=== PATIENT | female | born 1945 | race Hispanic/Latino ===

== ENCOUNTER → 2018-02-23 | Outpatient (CLI) | payer OTHER ==
[~2018-02-23] MED LIST: ASPI-555 PO; ATOR10 PO; BUME1TAB12 PO; FLUOXETINE PO; HYDRALAZINE PO; INSU100C14 SQ; INSU300I SQ; LEVO75TA10 PO; METO25TA6 PO; SPIR25TA6 PO
== END | disposition home or self-care (01) ==
LOC: RAH 08:23
PROVIDERS: ATTEND Internal Medicine Gastroenterology
DX: R94.5 Abnormal results of liver function studies (principal); R18.8 Other ascites
CPT/HCPCS: 76700

== ENCOUNTER → 2018-04-01 | Outpatient (CLI) | payer OTHER ==
[~2018-04-01] MED LIST changes: +ALBUMIN (HUMAN) 25% 200 ML IV ONE
[2018-04-01 13:31] LABS: INR 1.22 (0.85-1.15); PROTHROMBIN TIME 12.8 SEC (9.6-11.6)
[2018-04-01 13:32] LABS: ALBUMIN 2.2 g/dL (3.5-5.0); CREATININE 2.2 mg/dL (0.5-1.5); POTASSIUM 3.8 mmol/L (3.5-5.1); TOTAL PROTEIN, SERUM 7.9 g/dL (6.0-8.3)
[2018-04-01 13:37] LABS: BASOPHILS % (AUTO) 0.5 % (0.0-5.0); EOSINOPHILS % (AUTO) 2.9 % (0.0-8.0); HEMATOCRIT 33.2 % (36-48); LYMPHOCYTES % (AUTO) 14.6 % (21.0-51.0); MEAN CORPUSCULAR HEMOGLOBIN 32.6 pg (27.0-33.0); MEAN CORPUSCULAR HGB CONC 33.6 g/dL (32.0-36.0); MONOCYTES % (AUTO) 8.7 % (3.0-13.0); NEUTROPHILS % (AUTO) 73.3 % (40.0-77.0); PLATELET COUNT (AUTO) 255 K/uL (130-400); RED BLOOD CELL COUNT(AUTO) 3.42 MIL/uL (4.00-5.50); RED CELL DISTRIBUTION WIDTH 13.9 % (11.0-15.5); WHITE BLOOD COUNT (AUTO) 13.1 K/uL (4.8-10.8)
[2018-04-01 16:45] LABS: ALBUMIN,BODY FLUID 0.7 g/dL
[2018-04-01 17:15] LABS: APPEARANCE BODY FLUID SLIGHTLY CLOUDY (CLEAR); COLOR,BODY FLUID YELLOW (LT YELLOW); SPECIMENTYPE,BODY FLUID ASCITES; TOTAL VOLUME,BODY FLUID 3000 mL
[2018-04-01 17:16] LABS: BODY FLUID RBC 36 /cu. mm.; BODY FLUID WBC 248 /cu. mm.
[2018-04-01 17:23] LABS: BF LYMPHOCYTE 15 %; BF MESOTHELIAL 73 %; BF OTHER CELLS 2
== END | disposition home or self-care (01) ==
LOC: RAH 12:45
PROVIDERS: ATTEND Internal Medicine Gastroenterology
DX: R18.8 Other ascites (principal)
CPT/HCPCS: 36415; 49083; 80053; 82042; 84157; 85025; 85610; 87071; 87205; 88108; 88305; 89051; P9046

== ENCOUNTER → 2018-07-19 | Outpatient (CLI) | payer OTHER ==
[~2018-07-19] MED LIST changes: -ALBUMIN (HUMAN) 25% 200 ML IV ONE; +ALBUMIN (HUMAN) 25% 200 ML IV SCH; +LIDOCAINE HCL MPF 1% 5ML VIAL ONE
[2018-07-19 08:20] LABS: EOSINOPHILS % (AUTO) 5.3 % (0.0-8.0); HEMATOCRIT 31.9 % (36-48); LYMPHOCYTES % (AUTO) 20.5 % (21.0-51.0); MEAN CORPUSCULAR HEMOGLOBIN 33.6 pg (27.0-33.0); MEAN CORPUSCULAR HGB CONC 34.2 g/dL (32.0-36.0); MEAN CORPUSCULAR VOLUME 98.2 fL (79-99); NEUTROPHILS % (AUTO) 63.2 % (40.0-77.0); PLATELET COUNT (AUTO) 255 K/uL (130-400); RED BLOOD CELL COUNT(AUTO) 3.25 MIL/uL (4.00-5.50); WHITE BLOOD COUNT (AUTO) 9.1 K/uL (4.8-10.8)
[2018-07-19 08:39] LABS: ALBUMIN 2.5 g/dL (3.5-5.0); BILIRUBIN,TOTAL 0.6 mg/dL (0.2-1.0); CREATININE 2.3 mg/dL (0.5-1.5); POTASSIUM 4.8 mmol/L (3.5-5.1); TOTAL PROTEIN, SERUM 8.4 g/dL (6.0-8.3)
[2018-07-19 08:50] LABS: INR 1.16 (0.85-1.15); PROTHROMBIN TIME 12.1 SEC (9.6-11.6)
[2018-07-19 12:53] LABS: APPEARANCE BODY FLUID CLEAR (CLEAR); COLOR,BODY FLUID YELLOW (LT YELLOW); SPECIMENTYPE,BODY FLUID ASCITES; TOTAL VOLUME,BODY FLUID 4000 mL
[2018-07-19 12:54] LABS: BODY FLUID RBC 28 /cu. mm.; BODY FLUID WBC 252 /cu. mm.
[2018-07-19 13:16] LABS: BF LYMPHOCYTE 45 %; BF MESOTHELIAL 31 %; BF MONOCYTE 12 %
== END | disposition home or self-care (01) ==
LOC: RAH 07:40
PROVIDERS: ATTEND Internal Medicine Gastroenterology
DX: K70.31 Alcoholic cirrhosis of liver with ascites (principal); E78.5 Hyperlipidemia, unspecified; I50.9 Heart failure, unspecified; F41.9 Anxiety disorder, unspecified; I21.3 ST elevation (STEMI) myocardial infarction of unspecified site; Z95.1 Presence of aortocoronary bypass graft; Z90.710 Acquired absence of both cervix and uterus; Z95.5 Presence of coronary angioplasty implant and graft; Z95.0 Presence of cardiac pacemaker; Z80.0 Family history of malignant neoplasm of digestive organs; Z79.899 Other long term (current) drug therapy; Z79.01 Long term (current) use of anticoagulants; G93.49 Other encephalopathy; E11.22 Type 2 diabetes mellitus with diabetic chronic kidney disease; N18.4 Chronic kidney disease, stage 4 (severe); Z79.4 Long term (current) use of insulin; Z79.84 Long term (current) use of oral hypoglycemic drugs; E03.9 Hypothyroidism, unspecified
CPT/HCPCS: 36415; 49083; 80053; 85025; 85610; 87071; 87205; 88108; 88305; 89051; P9046; J3490

== ENCOUNTER → 2018-08-06 | Outpatient (CLI) | payer OTHER ==
[~2018-08-06] VITALS: Ht 162.6 cm; Wt 60.1 kg
[~2018-08-06] MED LIST changes: +AEC81 PO; -ALBUMIN (HUMAN) 25% 200 ML IV SCH; +ATOR40TA71 PO; +FLUO10CA21 PO; +FURO40TA5 PO; +HYDR-3420 PO; +LEVO100T12 PO; -LIDOCAINE HCL MPF 1% 5ML VIAL ONE; +MULTIVITAMINE PO; +OMEP20CA10 PO; +SODIUM CHLORIDE 0.9% 1000ML 1,000 ML IV SCH; +SPIR50TA5 PO; +VANCOMYCIN 1GM+NS 250ML 250 ML IV SCH
[2018-08-06 15:05] LABS: BASOPHILS % (AUTO) 0.8 % (0.0-5.0); EOSINOPHILS % (AUTO) 3.7 % (0.0-8.0); HEMATOCRIT 32.4 % (36-48); LYMPHOCYTES % (AUTO) 19.4 % (21.0-51.0); MEAN CORPUSCULAR HEMOGLOBIN 33.3 pg (27.0-33.0); MEAN CORPUSCULAR HGB CONC 34.1 g/dL (32.0-36.0); MEAN CORPUSCULAR VOLUME 97.6 fL (79-99); MONOCYTES % (AUTO) 9.7 % (3.0-13.0); NEUTROPHILS % (AUTO) 66.4 % (40.0-77.0); PLATELET COUNT (AUTO) 222 K/uL (130-400); RED BLOOD CELL COUNT(AUTO) 3.32 MIL/uL (4.00-5.50); RED CELL DISTRIBUTION WIDTH 14.3 % (11.0-15.5); WHITE BLOOD COUNT (AUTO) 10.2 K/uL (4.8-10.8)
[2018-08-06 15:08] VITALS: BP 121/59
[2018-08-06 15:12] LABS: CREATININE 2.4 mg/dL (0.5-1.5); POTASSIUM 4.5 mmol/L (3.5-5.1)
[2018-08-06 15:16] LABS: INR 1.14 (0.85-1.15); PARTIAL THROMBOPLASTIN TIME 28.4 SEC (26.3-35.5); PROTHROMBIN TIME 11.9 SEC (9.6-11.6)
[2018-08-06 16:08] LABS: APPEARANCE,URINE Clear (CLEAR); BILIRUBIN,URINE Negative (NEGATIVE); COLOR,URINE Yellow (YELLOW); GLUCOSE, URINE (UA) Negative (NEGATIVE); KETONES,URINE Negative (NEGATIVE); LEUKOCYTE ESTERASE ,URINE Large (NEGATIVE); NITRATE,URINE Negative (NEGATIVE); OCCULT BLOOD,URINE Negative (NEGATIVE); PROTEIN,URINE Negative (NEGATIVE); UROBILINOGEN,URINE 0.2 mg/dL (0.2-1.0)
[2018-08-06 16:33] LABS: BACTERIA,URINE Few /HPF (None Seen); RBC,URINE 0-1 /HPF (0-1)
[2018-08-06 16:35] LABS: SQUAMOUS EPITHELIAL CELL,UR Rare /HPF (0-2)
== END ==
LOC: DAH 10:00 → EDSTATUS 08-10 11:00
PROVIDERS: ATTEND Surgery
DX: R94.31 Abnormal electrocardiogram [ECG] [EKG] (principal); I13.0 Hypertensive heart and chronic kidney disease with heart failure and stage 1 through stage 4 chronic kidney disease, or unspecified chronic kidney disease; E11.22 Type 2 diabetes mellitus with diabetic chronic kidney disease; I25.10 Atherosclerotic heart disease of native coronary artery without angina pectoris; N18.4 Chronic kidney disease, stage 4 (severe)
CPT/HCPCS: 36415; 80048; 81001; 85025; 85610; 85730; 93005

== ENCOUNTER 2018-08-17 07:57 | Observation (INO) | payer OTHER ==
[2018-08-13 15:09] LABS: BASOPHILS % (AUTO) 0.5 % (0.0-5.0); EOSINOPHILS % (AUTO) 2.8 % (0.0-8.0); HEMATOCRIT 32.1 % (36-48); LYMPHOCYTES % (AUTO) 18.9 % (21.0-51.0); MEAN CORPUSCULAR HEMOGLOBIN 32.6 pg (27.0-33.0); MEAN CORPUSCULAR HGB CONC 33.4 g/dL (32.0-36.0); MEAN CORPUSCULAR VOLUME 97.7 fL (79-99); MONOCYTES % (AUTO) 10.1 % (3.0-13.0); NEUTROPHILS % (AUTO) 67.7 % (40.0-77.0); PLATELET COUNT (AUTO) 194 K/uL (130-400); RED BLOOD CELL COUNT(AUTO) 3.28 MIL/uL (4.00-5.50); RED CELL DISTRIBUTION WIDTH 14.2 % (11.0-15.5); WHITE BLOOD COUNT (AUTO) 9.8 K/uL (4.8-10.8)
[2018-08-13 15:21] VITALS: BP 112/56
[2018-08-13 15:21] LABS: CREATININE 2.8 mg/dL (0.5-1.5); POTASSIUM 4.7 mmol/L (3.5-5.1)
[2018-08-13 15:21] LABS: APPEARANCE,URINE Clear (CLEAR); BILIRUBIN,URINE Negative (NEGATIVE); COLOR,URINE Yellow (YELLOW); GLUCOSE, URINE (UA) Negative (NEGATIVE); KETONES,URINE Negative (NEGATIVE); LEUKOCYTE ESTERASE ,URINE Large (NEGATIVE); NITRATE,URINE Positive (NEGATIVE); OCCULT BLOOD,URINE Negative (NEGATIVE); PH,URINE 6.5 (5.0-8.0); PROTEIN,URINE Negative (NEGATIVE)
[2018-08-13 15:24] LABS: INR 1.15 (0.85-1.15); PARTIAL THROMBOPLASTIN TIME 27.8 SEC (26.3-35.5)
[2018-08-13 15:44] LABS: BACTERIA,URINE Moderate /HPF (None Seen); RBC,URINE 0-1 /HPF (0-1)
[2018-08-17] VITALS (21 sets, daily range): BP systolic 109–159; BP diastolic 45–67
[~2018-08-17] VITALS: Ht 162.6 cm; Wt 59.7 kg
[~2018-08-17 07:57] MED LIST changes: -ASPI-555 PO; -ATOR10 PO; -ATOR40TA71 PO; -BUME1TAB12 PO; -FLUO10CA21 PO; -FLUOXETINE PO; -HYDRALAZINE PO; -INSU300I SQ; -LEVO75TA10 PO; -SODIUM CHLORIDE 0.9% 1000ML 1,000 ML IV SCH; -SPIR25TA6 PO; -VANCOMYCIN 1GM+NS 250ML 250 ML IV SCH
[2018-08-17] MEDS ORDERED: LEVOFLOXACIN 500 MG/D5W 100 ML 100 ML IV SCH (08:00)
[2018-08-17 08:42] LABS: CREATININE 2.6 mg/dL (0.5-1.5); POTASSIUM 5.3 mmol/L (3.5-5.1)
[2018-08-17] MEDS ORDERED: LACTATED RINGERS 1000ML 1,000 ML IV ONE (09:04)
[2018-08-17] MEDS ORDERED: ATOR40TA71 PO (10:07)
[2018-08-17] MEDS ORDERED: FLUO10CA21 PO (10:11)
[2018-08-17] MEDS ORDERED: DEXAMETHASONE SOD PHOSPHATE 10MG/ML 1ML VIAL ONE (10:29)
[2018-08-17] MEDS ORDERED: SUCCINYLCHOLINE 200MG/10ML SYR ONE (10:29)
[2018-08-17] MEDS ORDERED: LIDOCAINE PF 2% 5ML ABBOJECT ONE ×2 (10:29→10:33)
[2018-08-17] MEDS ORDERED: ONDANSETRON HCL 4 MG/2 ML VIAL ONE (10:29)
[2018-08-17] MEDS ORDERED: MIDAZOLAM HCL 1 MG/ML 2ML VIAL ONE (10:30)
[2018-08-17] MEDS ORDERED: GLYCOPYRROLATE 1 MG/5 ML SYRINGE ONE (10:30)
[2018-08-17] MEDS ORDERED: PROPOFOL 10 MG/ML 20ML VIAL IV ONE (10:31)
[2018-08-17] MEDS ORDERED: NEOSTIGMINE 5MG/5ML SYR IV ONE (10:31)
[2018-08-17] MEDS ORDERED: FENTANYL CITRATE PF 50 MCG/1 ML 2ML VIAL ONE (10:31)
[2018-08-17] MEDS ORDERED: ROCURONIUM 10MG/1ML SYR 10 MG/ML ML ONE (10:31)
[2018-08-17] MEDS ORDERED: KETAMINE 50MG/ML SYRINGE 50 MG/ML DISP.SYRIN IV ONE (10:42)
[2018-08-17] MEDS ORDERED: PHENYLEPHRINE HCL 10 MG/ML 1ML VIAL IV ONE (11:06)
[2018-08-17] MEDS ORDERED: EPHEDRINE SULFATE 50 MG/ML AMPULE ONE (11:10)
[2018-08-17] MEDS: SODIUM CHLORIDE 0.9% 1000ML 1,000 ML IV SCH ×2 (12:46→17:24)
[2018-08-17] MEDS ORDERED: ONDANSETRON HCL 4 MG/2 ML VIAL IVP PRN (13:00)
[2018-08-17] MEDS ORDERED: ACETAMINOPHEN 325 MG TAB PO PRN (13:00)
[2018-08-17] MEDS ORDERED: MORPHINE SULFATE 2 MG/ML 1ML SYG IV PRN (13:00)
[2018-08-17] MEDS ORDERED: ACETAMINOPHEN-CODEINE 300/30MG TAB PO PRN (13:00)
[2018-08-17] MEDS ORDERED: MEPERIDINE-PF 25 MG/ML SYG ONE ×2 (13:12→13:29)
[2018-08-17] MEDS ORDERED: PHARMACY COMMUNICATION MISC SCH (15:15)
[2018-08-17] MEDS ORDERED: GLUCAGON 1MG KIT 1 MG ML IM PRN (17:45)
[2018-08-17] MEDS ORDERED: DEXTROSE 50%-WATER 50 ML DISP.SYRIN IV PRN (17:45)
[2018-08-17] MEDS: METOPROLOL TARTRATE 25 MG TAB PO SCH (20:46)
[2018-08-17] MEDS: HYDRALAZINE HCL 10 MG TABLET PO SCH (20:46)
[2018-08-17] MEDS: HUMALOG PO SS1 SQ SCH (20:59)
[2018-08-17] MEDS ORDERED: FLUOXETINE HCL 10 MG CAPSULE PO SCH (21:00)
[2018-08-17] MEDS ORDERED: ATORVASTATIN CALCIUM 40 MG TABLET PO SCH (21:00)
[2018-08-18 03:06] VITALS: BP 150/67
[2018-08-18] MEDS: HUMALOG PO SS1 SQ SCH ×3 (05:47→17:12)
[2018-08-18] MEDS ORDERED: LEVOTHYROXINE 100 MCG TABLET PO SCH (06:30)
[2018-08-18 08:00] VITALS: BP 114/49
[2018-08-18] MEDS ORDERED: SPIRONOLACTONE 25 MG TAB PO SCH (09:00)
[2018-08-18] MEDS ORDERED: FUROSEMIDE 40 MG TABLET PO SCH (09:00)
[2018-08-18] MEDS ORDERED: PANTOPRAZOLE SODIUM 40 MG TABLET.DR PO SCH (09:00)
[2018-08-18] MEDS ORDERED: LEVOFLOXACIN 500 MG TABLET PO SCH (10:00)
[2018-08-18] MEDS ORDERED: DIPHENHYDRAMINE HCL 25 MG CAPSULE ONE (10:15)
[2018-08-18] MEDS ORDERED: DIPHENHYDRAMINE HCL 25 MG CAPSULE PO PRN (10:15)
[2018-08-18] MEDS: METOPROLOL TARTRATE 25 MG TAB PO SCH (10:18)
[2018-08-18] MEDS: HYDRALAZINE HCL 10 MG TABLET PO SCH (10:18)
[2018-08-18 11:00] VITALS: BP 112/49
[2018-08-18 16:00] VITALS: BP 136/56
== END 2018-08-18 18:47 | disposition home or self-care (01) ==
LOC: DAH 07:57 → 4BH 07:58
PROVIDERS: ADMIT Surgery; ATTEND Surgery
DX: C50.912 Malignant neoplasm of unspecified site of left female breast (principal)
CPT/HCPCS: 19307; 36415 ×2; 80048 ×2; 81001; 82948 ×6; 85025; 85610; 85730; 88309; 96365; 96372 ×2; A4452; A4600; G0378 ×35; J0330; J1100; J1956; J2001 ×2; J2175 ×2; J2370; J2405; J2704; J2710; J3010; J3490 ×3; J7030; J7120; Q0163; J2250

== ENCOUNTER → 2018-08-25 | Outpatient (CLI) | payer OTHER ==
[~2018-08-25] MED LIST changes: +ATOR40TA71 PO; +FLUO10CA21 PO
== END | disposition home or self-care (01) ==
LOC: RAH 08:00
PROVIDERS: ATTEND Internal Medicine Gastroenterology
DX: K74.60 Unspecified cirrhosis of liver (principal); I86.8 Varicose veins of other specified sites
CPT/HCPCS: 76700; 93975

== ENCOUNTER 2018-09-16 09:00 | Day surgery (SDC) | payer OTHER ==
[2018-09-13 16:46] LABS: BASOPHILS % (AUTO) 0.9 % (0.0-5.0); EOSINOPHILS % (AUTO) 6.4 % (0.0-8.0); HEMATOCRIT 32.2 % (36-48); LYMPHOCYTES % (AUTO) 20.6 % (21.0-51.0); MEAN CORPUSCULAR HGB CONC 32.6 g/dL (32.0-36.0); MEAN CORPUSCULAR VOLUME 98.2 fL (79-99); MONOCYTES % (AUTO) 11.3 % (3.0-13.0); NEUTROPHILS % (AUTO) 60.8 % (40.0-77.0); PLATELET COUNT (AUTO) 193 K/uL (130-400); RED BLOOD CELL COUNT(AUTO) 3.28 MIL/uL (4.00-5.50); RED CELL DISTRIBUTION WIDTH 13.5 % (11.0-15.5); WHITE BLOOD COUNT (AUTO) 7.9 K/uL (4.8-10.8)
[2018-09-13 16:49] VITALS: BP 109/58
[2018-09-13 16:55] LABS: CREATININE 2.5 mg/dL (0.5-1.5); POTASSIUM 4.2 mmol/L (3.5-5.1)
[2018-09-13 17:29] LABS: APPEARANCE,URINE Clear (CLEAR); BILIRUBIN,URINE Negative (NEGATIVE); COLOR,URINE Yellow (YELLOW); GLUCOSE, URINE (UA) Negative (NEGATIVE); KETONES,URINE Negative (NEGATIVE); LEUKOCYTE ESTERASE ,URINE Trace (NEGATIVE); NITRATE,URINE Negative (NEGATIVE); OCCULT BLOOD,URINE Negative (NEGATIVE); PH,URINE 5.5 (5.0-8.0); PROTEIN,URINE Negative (NEGATIVE)
[2018-09-13 17:42] LABS: RBC,URINE None Seen /HPF (0-1)
[2018-09-13 17:43] LABS: BACTERIA,URINE None Seen /HPF (None Seen); HYALINE CASTS, URINE 0-1 /LPF (0-1 /LPF); SQUAMOUS EPITHELIAL CELL,UR Few /HPF (0-2); WBC,URINE 0-1 /HPF (0-1)
[~2018-09-16] VITALS: Ht 162.6 cm; Wt 57.8 kg
[2018-09-16] VITALS (15 sets, daily range): BP systolic 102–114; BP diastolic 42–71
[~2018-09-16 09:00] MED LIST changes: +LACTATED RINGERS 1000ML 1,000 ML IV SCH
[2018-09-16] MEDS ORDERED: SODIUM CHLORIDE 0.9% 1000ML 1,000 ML IV ONE (09:43)
[2018-09-16] MEDS ORDERED: INSU300I SQ (10:42)
[2018-09-16] MEDS ORDERED: LIDOCAINE 1%-EPI 1:100,000 20 ML VIAL IJ ONE (11:35)
[2018-09-16] MEDS ORDERED: LIDOCAINE PF 2% 5ML ABBOJECT ONE (11:57)
[2018-09-16] MEDS ORDERED: MIDAZOLAM HCL 1 MG/ML 2ML VIAL ONE (11:57)
[2018-09-16] MEDS ORDERED: DEXAMETHASONE SOD PHOSPHATE 10MG/ML 1ML VIAL ONE (11:57)
[2018-09-16] MEDS ORDERED: ONDANSETRON HCL 4 MG/2 ML VIAL ONE (11:57)
[2018-09-16] MEDS ORDERED: PROPOFOL 10 MG/ML 20ML VIAL IV ONE ×2 (11:57→12:36)
[2018-09-16] MEDS ORDERED: FENTANYL CITRATE PF 50 MCG/1 ML 2ML VIAL ONE ×2 (11:58→12:25)
[2018-09-16] MEDS ORDERED: CEFAZOLIN SODIUM 1 GM VIAL ONE (12:25)
[2018-09-16] MEDS ORDERED: EPHEDRINE SULFATE 50 MG/ML AMPULE ONE (12:27)
== END 2018-09-16 15:00 | disposition home or self-care (01) ==
LOC: DAH 09:00
PROVIDERS: ATTEND Surgery
DX: Z45.2 Encounter for adjustment and management of vascular access device (principal); I21.3 ST elevation (STEMI) myocardial infarction of unspecified site; M81.0 Age-related osteoporosis without current pathological fracture; F64.9 Gender identity disorder, unspecified; I25.709 Atherosclerosis of coronary artery bypass graft(s), unspecified, with unspecified angina pectoris; I13.0 Hypertensive heart and chronic kidney disease with heart failure and stage 1 through stage 4 chronic kidney disease, or unspecified chronic kidney disease; E11.22 Type 2 diabetes mellitus with diabetic chronic kidney disease; N18.4 Chronic kidney disease, stage 4 (severe); Z79.4 Long term (current) use of insulin; E78.2 Mixed hyperlipidemia; E03.9 Hypothyroidism, unspecified; I25.5 Ischemic cardiomyopathy; F32.9 Major depressive disorder, single episode, unspecified; E66.9 Obesity, unspecified; E11.42 Type 2 diabetes mellitus with diabetic polyneuropathy; E11.3313 Type 2 diabetes mellitus with moderate nonproliferative diabetic retinopathy with macular edema, bilateral; K21.9 Gastro-esophageal reflux disease without esophagitis; Z79.899 Other long term (current) drug therapy; Z98.890 Other specified postprocedural states; Z95.1 Presence of aortocoronary bypass graft; Z90.710 Acquired absence of both cervix and uterus; Z98.51 Tubal ligation status; I50.22 Chronic systolic (congestive) heart failure; Z79.84 Long term (current) use of oral hypoglycemic drugs; Z88.2 Allergy status to sulfonamides; Z88.8 Allergy status to other drugs, medicaments and biological substances; Z82.49 Family history of ischemic heart disease and other diseases of the circulatory system; Z83.3 Family history of diabetes mellitus; Z85.3 Personal history of malignant neoplasm of breast; R27.0 Ataxia, unspecified
CPT/HCPCS: 36415; 36561; 71045; 80048; 81001; 82948; 85025; 93005; A4450; A4452; C1788; J0690; J1100; J1644; J2001; J2250; J2405; J2704 ×2; J3010 ×2; J3490; J7030 ×2

== ENCOUNTER → 2018-10-25 | Outpatient (CLI) | payer OTHER ==
[~2018-10-25] MED LIST changes: +ALBUMIN (HUMAN) 25% 200 ML IV SCH; +CALC-877 PO; +CEFT2PIG2 IV; +DIPH25 PO; +EXEM25TA PO; -HYDR-3420 PO; +INSU300I SQ; +LACT10PA4 PO; -LACTATED RINGERS 1000ML 1,000 ML IV SCH; +LEVO500T2 PO; +LIDOCAINE HCL 1% 20 ML VIAL ONE; +LOPE2TAB52 PO; +MULT-1203 PO; +ONDA4TAB4 PO; +PROP10TA72 PO; +RIFA550T PO
[2018-10-25 08:27] LABS: INR 1.22 (0.85-1.15); PARTIAL THROMBOPLASTIN TIME 29.2 SEC (26.3-35.5); PROTHROMBIN TIME 12.8 SEC (9.6-11.6)
--- NOTE | 2018-10-25 09:15 | NUR ---
U/S GD PARACENTESIS PROCEDURE PERFORMED BY DR VALLES. PUNCTURE SITE RIGHT SIDE OF ABDOMEN AND PATIENT TOLERATED PROCEDURE WELL. TOTAL REMOVED 6.7 LITERS OF CLEAR YELLOW FLUID_. ALBUMIN 25% 50 GRAMS IV GIVEN DURING PROCEDURE. SPECIMEN SENT TO LAB. END OF PROCEDURE AT 0955. CATHETER REMOVED AND DRESSING APPLIED. NO BLEEDING NOTED. DISCHARGE INSTRUCTIONS GIVEN TO PATIENT AND VERBALIZED UNDERSTANDING. DISCHARGED AMBULATORY @ 1030. STABLE, AAO X3 WITH NO C/O PAIN.
[2018-10-25 10:34] LABS: APPEARANCE BODY FLUID CLEAR (CLEAR); COLOR,BODY FLUID YELLOW (LT YELLOW); SPECIMENTYPE,BODY FLUID ASCITES; TOTAL VOLUME,BODY FLUID 6700 mL
[2018-10-25 10:35] LABS: BODY FLUID RBC 62 /cu. mm.; BODY FLUID WBC 126 /cu. mm.
[2018-10-25 11:12] LABS: BF LYMPHOCYTE 29 %; BF MESOTHELIAL 38 %; BF MONOCYTE 18 %
== END | disposition home or self-care (01) ==
LOC: RAH 07:39
PROVIDERS: ATTEND Internal Medicine
DX: R18.8 Other ascites (principal); Z95.1 Presence of aortocoronary bypass graft; Z98.84 Bariatric surgery status; Z98.890 Other specified postprocedural states; Z90.710 Acquired absence of both cervix and uterus; Z98.51 Tubal ligation status; Z79.01 Long term (current) use of anticoagulants; Z79.899 Other long term (current) drug therapy; I13.0 Hypertensive heart and chronic kidney disease with heart failure and stage 1 through stage 4 chronic kidney disease, or unspecified chronic kidney disease; E11.22 Type 2 diabetes mellitus with diabetic chronic kidney disease; N18.4 Chronic kidney disease, stage 4 (severe); I50.9 Heart failure, unspecified; I25.5 Ischemic cardiomyopathy; F33.40 Major depressive disorder, recurrent, in remission, unspecified; K21.9 Gastro-esophageal reflux disease without esophagitis; E11.36 Type 2 diabetes mellitus with diabetic cataract; I25.118 Atherosclerotic heart disease of native coronary artery with other forms of angina pectoris; E78.5 Hyperlipidemia, unspecified; E03.9 Hypothyroidism, unspecified; E78.2 Mixed hyperlipidemia; Z79.4 Long term (current) use of insulin; E11.42 Type 2 diabetes mellitus with diabetic polyneuropathy; E11.3313 Type 2 diabetes mellitus with moderate nonproliferative diabetic retinopathy with macular edema, bilateral; L50.9 Urticaria, unspecified; Z82.49 Family history of ischemic heart disease and other diseases of the circulatory system; Z83.3 Family history of diabetes mellitus; Z88.8 Allergy status to other drugs, medicaments and biological substances
CPT/HCPCS: 36415; 49083; 85610; 85730; 87071; 87205; 89051; 96365; A4215; P9046

== ENCOUNTER 2018-11-18 13:38 | Inpatient (IN) | payer OTHER ==
[2018-11-18] VITALS (11 sets, daily range): BP systolic 74–146; BP diastolic 35–68
[~2018-11-18] VITALS: Ht 162.6 cm; Wt 54.6 kg
[~2018-11-18 13:38] MED LIST changes: -ALBUMIN (HUMAN) 25% 200 ML IV SCH; -CEFT2PIG2 IV; -DIPH25 PO; -INSU100C14 SQ; -INSU300I SQ; -LACT10PA4 PO; -LIDOCAINE HCL 1% 20 ML VIAL ONE; -LOPE2TAB52 PO; -METO25TA6 PO; -MULTIVITAMINE PO; -SPIR50TA5 PO
[2018-11-18 14:04] LABS: BASOPHILS % (AUTO) 1.2 % (0.0-5.0); EOSINOPHILS % (AUTO) 10.7 % (0.0-8.0); HEMATOCRIT 24.3 % (36-48); LYMPHOCYTES % (AUTO) 21.2 % (21.0-51.0); MEAN CORPUSCULAR HEMOGLOBIN 32.3 pg (27.0-33.0); MEAN CORPUSCULAR HGB CONC 33.8 g/dL (32.0-36.0); MEAN CORPUSCULAR VOLUME 95.5 fL (79-99); MONOCYTES % (AUTO) 11.8 % (3.0-13.0); NEUTROPHILS % (AUTO) 55.1 % (40.0-77.0); NUCLEATED RED BLOOD CELLS 0.1 % (0.0-0.19); PLATELET COUNT (AUTO) 237 K/uL (130-400); RED BLOOD CELL COUNT(AUTO) 2.54 MIL/uL (4.00-5.50); RED CELL DISTRIBUTION WIDTH 15.9 % (11.0-15.5); WHITE BLOOD COUNT (AUTO) 9.2 K/uL (4.8-10.8)
[2018-11-18 14:21] LABS: CREATININE 3.1 mg/dL (0.5-1.5); POTASSIUM 3.4 mmol/L (3.5-5.1)
[2018-11-18 14:23] LABS: ALBUMIN 2.2 g/dL (3.5-5.0); BILIRUBIN,TOTAL 0.6 mg/dL (0.2-1.0); TOTAL PROTEIN, SERUM 7.3 g/dL (6.0-8.3)
[2018-11-18 15:21] LABS: INR 1.18 (0.85-1.15); PARTIAL THROMBOPLASTIN TIME 26.8 SEC (26.3-35.5); PROTHROMBIN TIME 12.4 SEC (9.6-11.6)
[2018-11-18] MEDS ORDERED: LIDOCAINE HCL 1% 20 ML VIAL INJ SCH (16:30)
[2018-11-18] MEDS ORDERED: LIDOCAINE HCL MPF 1% 5ML VIAL ONE (16:33)
[2018-11-18] MEDS: PHARMACY COMMUNICATION MISC SCH ×4 (17:00→20:00)
--- NOTE | 2018-11-18 17:00 | NUR ---
S/P RIGHT THORACENTESIS, 1.9 L. OUT NO DISTRESS, 1800 PM PENDING ALBUMIN VALENE FROM PHARMACY AWARE STATES WILL BRING, NO SOB, BP 111/68. NO BLEEDING NOTED. TO RIGHT SIDE INCISION.
--- NOTE | 2018-11-18 17:00 | NUR ---
CM DC PLAN SW THIS PATIENT S/P THORA- AAOX3 DENYING OCMPLAINTS OF PAIN, STATES WAS RECEIVING ABX FROM DR. BIANCHI VIA IM INJECTIONS; HAS ROLLATOR WALKER, ' IS PROVIDER' HOME IS SAFE TO RETURN TO AND FEELS 'GREAT' POST THORA. CM TO FOLLOW NEEDED
[2018-11-18] MEDS ORDERED: ALBUMIN (HUMAN) 25% 100 ML IV STA (17:04)
[2018-11-18] MEDS ORDERED: LIDOCAINE HCL-MPF 1% 2ML VIAL IVP PRN (17:15)
[2018-11-18] MEDS ORDERED: POTASSIUM CHLORIDE 10% ELIXIR 20 MEQ/15 ML UDCUP PO PRN (17:15)
[2018-11-18] MEDS ORDERED: POTASSIUM CHLORIDE 20MEQ/100ML 100 ML IV PRN (17:15)
[2018-11-18] MEDS: EXEMESTANE 25 MG PO SCH (18:00)
[2018-11-18 20:32] LABS: ALBUMIN,BODY FLUID 0.4 g/dL
[2018-11-18 21:03] LABS: APPEARANCE BODY FLUID SLIGHTLY CLOUDY (CLEAR); COLOR,BODY FLUID LT YELLOW (LT YELLOW); SPECIMENTYPE,BODY FLUID PLEURAL
[2018-11-18 21:04] LABS: TOTAL VOLUME,BODY FLUID 1840 mL
[2018-11-18 21:12] LABS: BODY FLUID WBC 81 /cu. mm.
[2018-11-18 21:13] LABS: BODY FLUID RBC 2 /cu. mm.
[2018-11-18 21:43] LABS: BF LYMPHOCYTE 40 %; BF MESOTHELIAL 25 %; BF MONOCYTE 7 %
[2018-11-19] VITALS: BP 110/51
[2018-11-19] MEDS: AZTREONAM 1 GM VIAL IVP SCH ×4 (00:02→17:21)
[2018-11-19] MEDS: LACTULOSE 20 GM/30 ML UDCUP PO SCH ×4 (00:05→21:37)
[2018-11-19] MEDS: FLUOXETINE HCL 10 MG CAPSULE PO SCH ×2 (00:05→21:38)
[2018-11-19] MEDS: PROPRANOLOL HCL 10 MG TAB PO SCH ×3 (00:05→21:38)
[2018-11-19 04:00] VITALS: BP 111/59
[2018-11-19 05:00] LABS: HEMATOCRIT 21.8 % (36-48); MEAN CORPUSCULAR HEMOGLOBIN 31.7 pg (27.0-33.0); MEAN CORPUSCULAR HGB CONC 33.3 g/dL (32.0-36.0); MEAN CORPUSCULAR VOLUME 95.1 fL (79-99); PLATELET COUNT (AUTO) 193 K/uL (130-400); RED BLOOD CELL COUNT(AUTO) 2.29 MIL/uL (4.00-5.50); RED CELL DISTRIBUTION WIDTH 15.6 % (11.0-15.5); WHITE BLOOD COUNT (AUTO) 7.8 K/uL (4.8-10.8)
[2018-11-19 05:08] LABS: INR 1.23 (0.85-1.15); PARTIAL THROMBOPLASTIN TIME 28.2 SEC (26.3-35.5); PROTHROMBIN TIME 12.9 SEC (9.6-11.6)
[2018-11-19 05:24] LABS: ALBUMIN 2.4 g/dL (3.5-5.0); BILIRUBIN,TOTAL 0.7 mg/dL (0.2-1.0); CREATININE 2.9 mg/dL (0.5-1.5); MAGNESIUM 1.5 mg/dL (1.80-2.40); POTASSIUM 3.7 mmol/L (3.5-5.1); THYROID STIMULATING HORMONE 1.71 uIU/mL (0.36-3.74); TOTAL PROTEIN, SERUM 6.9 g/dL (6.0-8.3)
[2018-11-19] MEDS: LEVOTHYROXINE 100 MCG TABLET PO SCH (06:10)
[2018-11-19 07:00] VITALS: BP 120/47
[2018-11-19] MEDS ORDERED: FUROSEMIDE 40 MG TABLET PO SCH (09:00)
[2018-11-19] MEDS: MULTIVITAMIN TABLET PO SCH (09:08)
[2018-11-19] MEDS: RIFAXIMIN 550 MG TABLET PO SCH (09:08)
[2018-11-19] MEDS: PANTOPRAZOLE SODIUM 40 MG TABLET.DR PO SCH (09:08)
[2018-11-19] MEDS: ASPIRIN 81 MG EC TAB PO SCH (09:08)
[2018-11-19 11:00] VITALS: BP 118/61
[2018-11-19] MEDS: CALCIUM 600 + VITAMIN D 400 TABLET PO SCH (12:59)
[2018-11-19 16:00] VITALS: BP_SYST 124; BP_DIAS 64; BP_DIAS 84
[2018-11-19] MEDS: EXEMESTANE 25 MG PO SCH (17:34)
[2018-11-19] MEDS ORDERED: MAGNESIUM 2GM PREMIX 50ML 50 ML IV SCH (19:15)
[2018-11-19] MEDS: FUROSEMIDE 10 MG/ML 4ML VIAL IV SCH (19:15)
[2018-11-19] MEDS ORDERED: ALBUMIN (HUMAN) 25% 50 ML IV ONE (20:00)
[2018-11-19] MEDS: PHARMACY COMMUNICATION MISC SCH ×4 (20:00→23:00)
[2018-11-19] MEDS: ALBUMIN (HUMAN) 25% 50 ML IV SCH (20:00)
[2018-11-19 20:27] VITALS: BP 125/56
[2018-11-20] MEDS: PHARMACY COMMUNICATION MISC SCH ×7 (01:00→22:00)
[2018-11-20 01:01] VITALS: BP_SYST 55
[2018-11-20] MEDS: AZTREONAM 1 GM VIAL IVP SCH ×3 (01:43→18:21)
[2018-11-20] MEDS: ALBUMIN (HUMAN) 25% 50 ML IV SCH ×3 (02:00→08:25)
[2018-11-20 04:32] VITALS: BP 115/52
[2018-11-20 05:27] LABS: MEAN CORPUSCULAR HEMOGLOBIN 32.4 pg (27.0-33.0); MEAN CORPUSCULAR HGB CONC 34.4 g/dL (32.0-36.0); MEAN CORPUSCULAR VOLUME 94.4 fL (79-99); PLATELET COUNT (AUTO) 161 K/uL (130-400); RED BLOOD CELL COUNT(AUTO) 2.16 MIL/uL (4.00-5.50); RED CELL DISTRIBUTION WIDTH 15.3 % (11.0-15.5); WHITE BLOOD COUNT (AUTO) 5.3 K/uL (4.8-10.8)
[2018-11-20 05:32] LABS: HEMATOCRIT 20.4 % (36-48)
[2018-11-20 05:41] LABS: INR 1.32 (0.85-1.15); PARTIAL THROMBOPLASTIN TIME 29.9 SEC (26.3-35.5); PROTHROMBIN TIME 13.8 SEC (9.6-11.6)
[2018-11-20 05:48] LABS: ALBUMIN 2.4 g/dL (3.5-5.0); BILIRUBIN,TOTAL 0.7 mg/dL (0.2-1.0); CREATININE 2.8 mg/dL (0.5-1.5); MAGNESIUM 1.5 mg/dL (1.80-2.40); PHOSPHORUS 4.2 mg/dL (2.5-4.9); POTASSIUM 3.3 mmol/L (3.5-5.1); TOTAL PROTEIN, SERUM 6.5 g/dL (6.0-8.3)
[2018-11-20] MEDS: LEVOTHYROXINE 100 MCG TABLET PO SCH (06:02)
[2018-11-20 07:00] VITALS: BP 125/52
[2018-11-20] MEDS: FUROSEMIDE 10 MG/ML 4ML VIAL IV SCH ×2 (08:27→20:39)
[2018-11-20] MEDS ORDERED: FUROSEMIDE 10 MG/ML 2ML VIAL IV SCH (11:00)
[2018-11-20 12:00] VITALS: BP 120/54
[2018-11-20] MEDS: LACTULOSE 20 GM/30 ML UDCUP PO SCH ×2 (12:10→20:31)
[2018-11-20] MEDS: ASPIRIN 81 MG EC TAB PO SCH (12:10)
[2018-11-20] MEDS: CALCIUM 600 + VITAMIN D 400 TABLET PO SCH (12:10)
[2018-11-20] MEDS: PANTOPRAZOLE SODIUM 40 MG TABLET.DR PO SCH (12:10)
[2018-11-20] MEDS: MULTIVITAMIN TABLET PO SCH (12:11)
[2018-11-20] MEDS: RIFAXIMIN 550 MG TABLET PO SCH (12:11)
[2018-11-20] MEDS: PROPRANOLOL HCL 10 MG TAB PO SCH ×2 (12:17→20:31)
[2018-11-20] MEDS ORDERED: SODIUM CHLORIDE 0.9% 500ML 500 ML IV ONE (15:49)
--- NOTE | 2018-11-20 15:52 | NUR ---
cm note met with patient Pt is independent lives at home with spouse. Uses a rollator walker, chair lift, and shower chair.. Feels safe to go back home, spouse assists with transportation and needs as necessary. DC plan to home Addendum: 11/20/18 at 1553 by YAN MURRY CM Amended: Links added.
--- NOTE | 2018-11-20 17:15 | NUR ---
Dr Valles on floor and patient consented for right chest tube insertion ( called per patient request and consent was obtained over the phone. Dr Valles inserted right chest tube size 14 connected to seal Pleur-evac drained 2100 cc yellow fluid sent to lab for testing orders for labs placed by doctor. chest tube securely sutured and tape to patient. patient tolerated procedure well. arrived prior to procedure and help hold and calm patient.
[2018-11-20 17:23] VITALS: BP 134/62
[2018-11-20] MEDS ORDERED: MORPHINE SULFATE 4 MG/1ML SYG IV PRN (17:45)
[2018-11-20] MEDS ORDERED: MORPHINE SULFATE 2 MG/ML 1ML SYG IVP PRN (17:45)
[2018-11-20] MEDS: EXEMESTANE 25 MG PO SCH (18:00)
[2018-11-20 19:20] VITALS: BP 139/50
[2018-11-20] MEDS: FLUOXETINE HCL 10 MG CAPSULE PO SCH (20:31)
[2018-11-20] MEDS: POTASSIUM CHLORIDE 20 MEQ ERTAB PO PRN (20:43)
[2018-11-20 21:17] LABS: SPECIMENTYPE,BODY FLUID PLEURAL
[2018-11-20 21:18] LABS: APPEARANCE BODY FLUID SLIGHTLY CLOUDY (CLEAR); COLOR,BODY FLUID LT YELLOW (LT YELLOW); TOTAL VOLUME,BODY FLUID 2100 mL
[2018-11-20 21:19] LABS: BODY FLUID WBC 426 /cu. mm.
[2018-11-20 21:20] LABS: BODY FLUID RBC 168 /cu. mm.
[2018-11-20 21:56] LABS: BF LYMPHOCYTE 24 %; BF MONOCYTE 9 %; BF OTHER CELLS 6
[2018-11-21 00:18] VITALS: BP 113/50
[2018-11-21] MEDS: PHARMACY COMMUNICATION MISC SCH ×4 (01:00→20:50)
[2018-11-21] MEDS: AZTREONAM 1 GM VIAL IVP SCH ×3 (02:10→17:31)
[2018-11-21 04:24] VITALS: BP 100/49
[2018-11-21 05:45] LABS: HEMATOCRIT 24.9 % (36-48); MEAN CORPUSCULAR HEMOGLOBIN 31.3 pg (27.0-33.0); MEAN CORPUSCULAR HGB CONC 34.2 g/dL (32.0-36.0); MEAN CORPUSCULAR VOLUME 91.4 fL (79-99); PLATELET COUNT (AUTO) 158 K/uL (130-400); RED BLOOD CELL COUNT(AUTO) 2.73 MIL/uL (4.00-5.50); RED CELL DISTRIBUTION WIDTH 16.6 % (11.0-15.5); WHITE BLOOD COUNT (AUTO) 7.9 K/uL (4.8-10.8)
[2018-11-21 05:53] LABS: CREATININE 2.8 mg/dL (0.5-1.5); MAGNESIUM 1.4 mg/dL (1.80-2.40); PHOSPHORUS 3.7 mg/dL (2.5-4.9); POTASSIUM 3.8 mmol/L (3.5-5.1)
[2018-11-21] MEDS: LEVOTHYROXINE 100 MCG TABLET PO SCH (06:00)
[2018-11-21] MEDS: FUROSEMIDE 10 MG/ML 4ML VIAL IV SCH ×2 (06:00→20:49)
[2018-11-21] MEDS: PANTOPRAZOLE SODIUM 40 MG TABLET.DR PO SCH (09:12)
[2018-11-21] MEDS: RIFAXIMIN 550 MG TABLET PO SCH (09:12)
[2018-11-21] MEDS: LACTULOSE 20 GM/30 ML UDCUP PO SCH ×3 (09:12→20:39)
[2018-11-21] MEDS: MULTIVITAMIN TABLET PO SCH (09:12)
[2018-11-21] MEDS: PROPRANOLOL HCL 10 MG TAB PO SCH ×2 (09:12→20:39)
[2018-11-21] MEDS: ASPIRIN 81 MG EC TAB PO SCH (09:13)
[2018-11-21 09:20] VITALS: BP 119/57
[2018-11-21 12:47] VITALS: BP 129/70
--- NOTE | 2018-11-21 12:50 | NUR ---
MD ROUNDS DR. RUBIO NOTIFIED OF RIGHT CHEST TUBE DISLODGING. 100ML OF CLEAR YELLOW FLUID NOTED IN H20 SEALED SUCTION CANISTER. 1 SUTURE REMOVED FROM CHEST TUBE. PRESSURE DRESSING APPLIED TO PUNCTURE SITE. NO NEW ORDERS FOR CHEST TUBE REINSERTION. CXR ORDERED.
[2018-11-21] MEDS: CALCIUM 600 + VITAMIN D 400 TABLET PO SCH (12:55)
[2018-11-21] MEDS ORDERED: MAGNESIUM 2GM PREMIX 50ML 50 ML IV SCH (13:15)
[2018-11-21 16:36] VITALS: BP 124/72
[2018-11-21] MEDS: OCTREOTIDE ACETATE 100 MCG/ML AMP SQ SCH ×2 (17:31→20:50)
[2018-11-21] MEDS: EXEMESTANE 25 MG PO SCH (17:31)
[2018-11-21 19:30] VITALS: BP 136/68
--- NOTE | 2018-11-21 20:00 | NUR ---
STATUS Pt resting in bed,respirations even and unlabored.Pt on 02 at 100% NRB mask,on cont 02 sat satting 100%.Pt denies chest pain or sob.
[2018-11-21] MEDS ORDERED: GLUCAGON 1MG KIT 1 MG ML IM PRN (20:30)
[2018-11-21] MEDS ORDERED: DEXTROSE 50%-WATER 50 ML DISP.SYRIN IV PRN (20:30)
[2018-11-21] MEDS: FLUOXETINE HCL 10 MG CAPSULE PO SCH (20:39)
[2018-11-21] MEDS: ALBUMIN (HUMAN) 25% 50 ML IV SCH (20:49)
[2018-11-21] MEDS: INSULIN HUMULIN R 100 UNIT/ML 3ML SQ SCH (21:00)
--- NOTE | 2018-11-21 22:25 | NUR ---
INSULIN Pts states he had given her insulin tonight.Instructed him not to give it to her starting tomorrow.He verbalized understanding.
[2018-11-22] VITALS (7 sets, daily range): BP systolic 115–139; BP diastolic 51–70
[2018-11-22] MEDS: AZTREONAM 1 GM VIAL IVP SCH ×3 (01:15→17:25)
[2018-11-22] MEDS: ALBUMIN (HUMAN) 25% 50 ML IV SCH ×3 (01:57→17:33)
[2018-11-22] MEDS: LACTULOSE 20 GM/30 ML UDCUP PO SCH ×4 (03:14→21:57)
[2018-11-22] MEDS: LEVOTHYROXINE 100 MCG TABLET PO SCH (05:42)
[2018-11-22] MEDS: FUROSEMIDE 10 MG/ML 4ML VIAL IV SCH ×2 (05:42→19:55)
[2018-11-22 05:54] LABS: HEMATOCRIT 27.1 % (36-48); MEAN CORPUSCULAR HEMOGLOBIN 30.9 pg (27.0-33.0); MEAN CORPUSCULAR HGB CONC 33.8 g/dL (32.0-36.0); MEAN CORPUSCULAR VOLUME 91.6 fL (79-99); PLATELET COUNT (AUTO) 177 K/uL (130-400); RED BLOOD CELL COUNT(AUTO) 2.96 MIL/uL (4.00-5.50); RED CELL DISTRIBUTION WIDTH 16.1 % (11.0-15.5); WHITE BLOOD COUNT (AUTO) 7.5 K/uL (4.8-10.8)
[2018-11-22] MEDS: INSULIN HUMULIN R 100 UNIT/ML 3ML SQ SCH ×4 (06:28→22:07)
[2018-11-22 07:38] LABS: CREATININE 3.2 mg/dL (0.5-1.5); MAGNESIUM 1.8 mg/dL (1.80-2.40); PHOSPHORUS 4.4 mg/dL (2.5-4.9)
[2018-11-22] MEDS ORDERED: LIDOCAINE HCL 1% 20 ML VIAL ONE (08:46)
--- NOTE | 2018-11-22 09:47 | NUR ---
PROCEDURE PATIENT SCHEDULED FOR U/S GD PARACENTESIS. IMAGES TAKEN AND REVIEWED BY DR Adarsh VOSS. NO FLUID SEEN FOR PARACENTESIS AND PROCEDURE CANCELLED. REPORT GIVEN TO ALANNA JACOB AND PATIENT TRANSPORTED TO [facility].
[2018-11-22] MEDS: OCTREOTIDE ACETATE 100 MCG/ML AMP SQ SCH ×3 (11:10→21:56)
[2018-11-22] MEDS: PANTOPRAZOLE SODIUM 40 MG TABLET.DR PO SCH (11:11)
[2018-11-22] MEDS: ASPIRIN 81 MG EC TAB PO SCH (11:11)
[2018-11-22] MEDS: MULTIVITAMIN TABLET PO SCH (11:11)
[2018-11-22] MEDS: PROPRANOLOL HCL 10 MG TAB PO SCH ×2 (11:12→21:56)
[2018-11-22] MEDS: RIFAXIMIN 550 MG TABLET PO SCH (11:12)
[2018-11-22] MEDS: CALCIUM 600 + VITAMIN D 400 TABLET PO SCH (12:07)
[2018-11-22] MEDS ORDERED: MAGNESIUM CITRATE 296 ML SOLUTION PO ONE (14:45)
[2018-11-22] MEDS: EXEMESTANE 25 MG PO SCH (17:27)
[2018-11-22] MEDS: FLUOXETINE HCL 10 MG CAPSULE PO SCH (21:56)
--- NOTE | 2018-11-22 23:04 | NUR ---
BM Pt states she's been having loose stools today, Continue on lactulose for Liver Cirrhosis.
[2018-11-23] MEDS: AZTREONAM 1 GM VIAL IVP SCH ×2 (01:23→10:18)
--- NOTE | 2018-11-23 01:37 | NUR ---
HYPOGLYCEMIA Pts skin cold and clammy,lethargic.Checked blood sugar 26.D 50 1 amp given iv.Random blood sugar ordered.
--- NOTE | 2018-11-23 01:48 | NUR ---
RECHECKED Blood sugar rechecked 198.Pt more awake,alert.Assisted to the bathroom,Morning labs drawn this time.
[2018-11-23 02:01] LABS: CREATININE 3.1 mg/dL (0.5-1.5); POTASSIUM 3.4 mmol/L (3.5-5.1)
[2018-11-23 03:20] VITALS: BP 121/63
--- NOTE | 2018-11-23 03:23 | NUR ---
FF UP Pt resting quietly in bed,skin warm to touch.Alert and oriented x 3. at bedside.
--- NOTE | 2018-11-23 04:19 | NUR ---
BLOOD SUGAR Bloos sugar rechecked 140.
[2018-11-23] MEDS: ALBUMIN (HUMAN) 25% 50 ML IV SCH (05:23)
[2018-11-23] MEDS: POTASSIUM CHLORIDE 20 MEQ ERTAB PO PRN (05:23)
[2018-11-23] MEDS: LACTULOSE 20 GM/30 ML UDCUP PO SCH ×2 (05:23→10:18)
[2018-11-23] MEDS: LEVOTHYROXINE 100 MCG TABLET PO SCH (06:07)
[2018-11-23] MEDS: FUROSEMIDE 10 MG/ML 4ML VIAL IV SCH (06:11)
[2018-11-23] MEDS: INSULIN HUMULIN R 100 UNIT/ML 3ML SQ SCH ×2 (06:15→13:50)
[2018-11-23 08:10] VITALS: BP 122/52
[2018-11-23] MEDS: PANTOPRAZOLE SODIUM 40 MG TABLET.DR PO SCH (10:18)
[2018-11-23] MEDS: ASPIRIN 81 MG EC TAB PO SCH (10:18)
[2018-11-23] MEDS: PROPRANOLOL HCL 10 MG TAB PO SCH (10:18)
[2018-11-23] MEDS: RIFAXIMIN 550 MG TABLET PO SCH (10:18)
[2018-11-23] MEDS: MULTIVITAMIN TABLET PO SCH (10:18)
[2018-11-23] MEDS: OCTREOTIDE ACETATE 100 MCG/ML AMP SQ SCH ×2 (10:31→13:41)
[2018-11-23 12:10] VITALS: BP 143/63
[2018-11-23] MEDS: CALCIUM 600 + VITAMIN D 400 TABLET PO SCH (13:41)
--- NOTE | 2018-11-23 15:17 | NUR ---
RDSCREEN - LOS X 5 Patient reports return of appetite. Intake at 75-100% with no report of GI distress. Patient LBM 11/22/18. Patient with altered renal lab values; RD rec to modify to renal non-dialysis diet. Patient with questions pertaining to dietary recommendations;RD provided information and reference materials for dietary recommendations. Patient monitored labs: K 3.4, Cl 99, BUN 33, Cr 3.1, Glu 207, Alb 2.4. RD to continue to monitor. Please notify RD as nutritional concerns arise. Thank you. Addendum: 11/23/18 at [address] Amended: Links added.
[2018-11-23] MEDS ORDERED: LACT PO (16:05)
[2018-11-23] MEDS ORDERED: FURO40TA5 PO (16:06)
[2018-11-23 16:21] VITALS: BP 148/74
--- NOTE | 2018-11-23 17:40 | NUR ---
DISCHARGE ORDERS RECEIVED FROM NESSA PRATER . PATIENT GIVEN DISCHARGE INSTRUCTIONS AND REVIEWED MEDICATION TO CONTINUE AND CHANGES TO BID ON LACTOSE AND LASIX AND FOLLOW-UP APPOINTMENT WITH DR ALARCON IN 2 WEEKS, PATIENT UNDERSTANDS TO CALL FOR APPOINTMENT. TELEMETRY UNIT REMOVED AND IV DISCONTINUE WITH CATHETER INTACT PRESSURE HELD TO SITE THE SITE DRESSED WITH PRESUURE DRESSING. PATIENT AND VERBALIZED UNDERSTANDING OF ALL INSTRUCTION . PATIENT TAKING BY WHEELCHAIR TO LOBBY AND LEFT WITH FAMILY FOR HOME.
== END 2018-11-23 18:05 | disposition home or self-care (01) | DRG 441 ==
LOC: EDH 13:38 → EDHIP 15:13 → OBSVTOIN 15:13 → 3CH 15:50
PROVIDERS: ADMIT Internal Medicine Critical Care Medicine; ATTEND Internal Medicine Critical Care Medicine
PROC: 30233N1 Transfusion of Nonautologous Red Blood Cells into Peripheral Vein, Percutaneous Approach (ICD-10-PCS; principal; 2018-11-18)
PROC: 0W993ZZ Drainage of Right Pleural Cavity, Percutaneous Approach (ICD-10-PCS; 2018-11-18)
PROC: 0W990ZZ Drainage of Right Pleural Cavity, Open Approach (ICD-10-PCS; 2018-11-23)
DX: K72.90 Hepatic failure, unspecified without coma (principal); K76.7 Hepatorenal syndrome; J96.90 Respiratory failure, unspecified, unspecified whether with hypoxia or hypercapnia; J94.8 Other specified pleural conditions; E87.1 Hypo-osmolality and hyponatremia; K76.6 Portal hypertension; I50.20 Unspecified systolic (congestive) heart failure; J90 Pleural effusion, not elsewhere classified; J93.9 Pneumothorax, unspecified; K74.69 Other cirrhosis of liver; E11.22 Type 2 diabetes mellitus with diabetic chronic kidney disease; D64.9 Anemia, unspecified; E03.9 Hypothyroidism, unspecified; F32.9 Major depressive disorder, single episode, unspecified; E78.5 Hyperlipidemia, unspecified; E86.9 Volume depletion, unspecified; N18.3 Chronic kidney disease, stage 3 (moderate); Z85.3 Personal history of malignant neoplasm of breast; Z91.19 Patient's noncompliance with other medical treatment and regimen
CPT/HCPCS: 32551; 32554; 36415; 36430; 71045; 76705; 80048; 80053; 80339; 82042; 82140; 82550; 82945; 82948; 83605; 83615; 83735; 83880; 83986; 84100; 84157; 84443; 84484; 85014; 85018; 85025; 85027; 85610; 85730; 86850; 86900; 86901; 86922; 87040; 87071; 87116; 87205; 87206; 88108; 88305; 89051; 94760; A4218; A4606; A7048; C1729; G0378; J1815; J1940; J2354; J3475; J3490; J7040; J7070; P9016; P9046; P9047

== ENCOUNTER → 2019-03-09 | Outpatient (CLI) | payer OTHER ==
[~2019-03-09] MED LIST changes: -ATOR40TA71 PO; +LACT PO; -LEVO500T2 PO
== END | disposition home or self-care (01) ==
LOC: RAH 07:33
PROVIDERS: ATTEND Internal Medicine Gastroenterology
DX: K72.90 Hepatic failure, unspecified without coma (principal); I70.0 Atherosclerosis of aorta; J90 Pleural effusion, not elsewhere classified
CPT/HCPCS: 76700; 93975